=== PATIENT | female | born 1945 | race Asian ===

== ENCOUNTER 2019-09-10 13:54 | Emergency (ER) | payer OTHER ==
--- OUTSIDE RECORDS SUMMARY | 2019-09-10 13:56 | XMS REPORT | Summary of Care ---
:1945 Author Name ORAL CERVANTES M.D. 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 Vaginal discharge (623.5, N89.8) Status: Active Vaginal itching (698.1, N89.8) Status: Active Postmenopausal atrophic vaginitis (627.3, N95.2) Status: Active Encounter for routine gynecological examination with Papanicolaou smear of cervix (V72.31, Z01.419) Status: Active Osteopenia (733.90, M85.80) Status: Active Hip pain, chronic (719.45, M25.559) Status: Active Osteoarthritis of both hips (715.95, M16.0) Status: Active Degenerative joint disease of both hips (715.95, M16.0) Status: Active Encounter for routine gynecological examination (V72.31, Z01.419) Status: Active Visit for screening mammogram (V76.12, Z12.31) Status: Active Medications Name Dates Details Fish Oil OIL Refills: 0 M.A.Active Vitamin C CAPS Refills: 0 M.A.Active Diovan HCT 80-12.5 MG Oral Tablet Refills: 0 M.A.Active Diovan 40 MG Oral Tablet BID Refills: 0 M.A. Start : 18-May-2018 Active Metoprolol Succinate ER 25 MG Oral Tablet Extended Release 24 Hour TAKE 1 TABLET DAILY. Refills: 0 M.A. Start : 18-May-2018 Active 100 Tablet Bottle Diclofenac Sodium 75 MG Oral Tablet Delayed Release TAKE 1 TABLET TWICE DAILY Quantity: 60 Refills: 2 CECILIA RYDER M.D. Start : 20-Oct-2018 Active raNITIdine 150 Max Strength 150 MG TABS TAKE 1 TABLET AT BEDTIME. Refills: 0 GROULS M.D., WILLIE Start : 20-Oct-2018 Active Diclofenac Sodium 1 % Transdermal Gel APPLY SPARINGLY TO AFFECTED AREAS TWICE DAILY Quantity: 1 Refills: 5 BRITNI Tank, CECILIA Start : 22-Oct-2018 Active 100 GM Tube Allergies and Adverse Reactions Name Dates Details Estrogens (Allergy) Status: Active Past Medical History Name Dates Details History of Cervical atypia (622.10, N87.9) Status: Resolved Procedures Procedure Dates Details [place] Breast mammogram bilateral 55297 Date: 27-May-2019 History of Cholecystectomy Completed Immunization Name Dates Details Fluzone High-Dose 0.5 ML Intramuscular Suspension Prefilled Syringe on: 2017 Family History Name Dates Details No pertinent family history (V49.89, Z78.9) Status: Active Social History Name Dates Details - Status: Name Dates Details Never smoker Never smoker Vital Signs Date Test Result Details [id number] BP Systolic 171 mm[Hg] Status: Comments: Location: LUE; Position: Sitting BP Diastolic 90 mm[Hg] Status: Comments: Location: LUE; Position: Sitting Heart Rate 66 /min Status: 61-Kun-[id number]:33 BP Systolic 194 mm[Hg] Status: Comments: Location: LUE; Position: Sitting BP Diastolic 96 mm[Hg] Status: Comments: Location: LUE; Position: Sitting Heart Rate 73 /min Status: Height 64 in Status: Weight 152.2 lb Status: Body Mass Index Calculated 26.13 kg/m2 Status: Body Surface Area Calculated 1.74 m2 Status: Temperature 98.3 f Status: Comments: Method: Oral Results Date Description Value Details [id number] MA Digital Mammo Screening Joseph [id number] Digital Mammo Screening Joseph SEE NOTES Comments: BILATERAL DIGITAL SCREENING MAMMOGRAM WITH CAD: 05/27/2019CLINICAL: /Z12.31 Encounter For Screening Mammogram For Malignant Neoplasm QrKjuqmrq72.31 Encounter For Screening Mammogram For Malignant [place] MA sm OfBreast. Current study was evaluated with a Computer Aided Detection (CAD) system. COMPARISON:Comparison is made to exams dated: 2017 mammogram, 05/18/2017mammogram, 04/15/2016 mammogram, and mammogram - [facility]. TECHNIQUE: Mammographic views were obtained using digital acquisition. Currentstudy was also evaluated with a Computer Aided Detec tion (CAD) system.FINDINGS:The tissue of both breasts is heterogeneously dense, which could obscuredetection of small masses. There are benign calcifications in the left breast. No significant masses, c alcifications, or other findings are seen in eitherbreast. There has been no significant interval change.IMPRESSION: BENIGNRECOMMENDATION:There is no mammographic evidence of malignancy. A 1 yearscreeni ng mammogram is recommended.(05/27/2020) This exam was interpreted [id number] for [facility]. Tomasz Reed M.D. hh/penrad:2018 16:31:25 Features Reporter(s): Myrna beckham, RT(R)(M), [facility] Departmentletter sent : BI-RADS 1/2 Dense Mammogram BI-RADS: 2 Benign--Read by: Tomasz Reed MD PHDDictated Date/time: 06/01/19 16:31Electronically S igned by: Tomasz Reed MD PHD 06/01/1916:31FINAL REPORT Plan of Care Name Dates Details Planned Observations Planned Goals not documented Instructions Name Dates Details Instructions not documented Encounters Appointment; ORAL CERVANTES M.D. On: 18-May-2018 9:35 Encounter Diagnosis: Problem not documented Appointment; DEXA, SCAN On: 18-May-2018 11:00 Encounter Diagnosis: Problem not documented Appointment; CECILIA RYDER M.D. On: 20-Oct-2018 10:15 Encounter Diagnosis: Problem not documented Appointment; ORAL CERVANTES M.D. On: 27-May-2019 11:10 Encounter Diagnosis: Problem not documented
--- NOTE | 2019-09-10 14:54 | RAD REPORT ---
EXAM DESCRIPTION: RAD - Chest Pa And Lat (2 Views) - 09/10/2019 2:47 pm CLINICAL HISTORY: Cough;Fever Chest pain. COMPARISON: Chest Pa And Lat (2 Views) dated 04/11/2019; CHEST SINGLE VIEW dated 01/27/2011; CHEST PA AND LAT 2 VIEW dated 10/02/2008; CHEST PA AND LAT 2 VIEW dated 04/03/1999 FINDINGS: The lungs are clear. No focal infiltrate detected. The heart is mildly enlarged. No displa christopher fractures.
--- NOTE | 2019-09-10 15:52 | EDPHYS ---
Physician Documentation [facility] Name: Marianne Petit Age: 74 yrs Sex: Female : 1945 Arrival Date: 09/10/2019 Time: 13:55 Bed 7 Private MD: Diana Perez R ED Physician Bienvenido Phan HPI: 14:31 This 74 yrs old Female presents to ER via Ambulatory with complaints of Fever, la1 Back Pain, Cough. 14:31 The patient reports fever, that was measured at 100.4 degrees Fahrenheit, with a la1 pattern that is constant, with an emergency department temperature of 99.4 degrees Fahrenheit. Onset: The symptoms/episode began/occurred 4 day(s) ago. Modifying factors: The patient has had contact with sick. Associated signs and symptoms: Pertinent positives: cough. Severity of symptoms: At their worst the symptoms were moderate. The patient has not experienced similar symptoms in the past. pt with family members with flu A, has had cough for a few days, been on tamiflu since Thursday. Fever since Thursday. Cough is persistent, now having upper back pain as well as persistent low grade fever. . Historical: - Allergies: 14:17 No Known Allergies; iw - PMHx: 14:18 Arthritis; MVP; iw - PSHx: 14:18 Cholecystectomy; right hip; cataracts; iw - Immunization history:: Adult Immunizations up to date. - Social history:: Smoking status: Patient denies any tobacco usage or history of. ROS: 14:33 Eyes: Negative for injury, pain, redness, and discharge, ENT: Negative for injury, la1 pain, and discharge, Neck: Negative for injury, pain, and swelling, Cardiovascular: Negative for chest pain, palpitations, and edema. 14:33 Abdomen/GI: Negative for abdominal pain, nausea, vomiting, diarrhea, and constipation. 14:33 MS/Extremity: Negative for injury and deformity, Skin: Negative for injury, rash, and discoloration, Neuro: Negative for headache, weakness, numbness, tingling, and seizure. 14:33 Constitutional: Positive for chills, fever, malaise. 14:33 Respiratory: Positive for cough, with green sputum, Negative for dyspnea on exertion, hemoptysis, orthopnea, shortness of breath, wheezing. 14:33 Back: Positive for upper back pain. Exam: 14:34 Constitutional: This is a well developed, well nourished patient who is awake, alert, la1 and in no acute distress. Head/Face: Normocephalic, atraumatic. Eyes: Pupils equal round and reactive to light, extra-ocular motions intact. Lids and lashes normal. Conjunctiva and sclera are non-icteric and not injected. ENT: Nares patent. No nasal discharge, no septal abnormalities noted. Tympanic membranes are normal and external auditory canals are clear. Oropharynx with no redness, swelling, or masses, exudates, or evidence of obstruction, uvula midline. Mucous membranes moist. Neck: Trachea midline Supple, full range of motion without nuchal rigidity, or vertebral point tenderness. No Meningismus. Chest/axilla: Normal chest wall appearance and motion. Nontender with no deformity. No lesions are appreciated. Cardiovascular: Regular rate and rhythm with a normal S1 and S2. Respiratory: Lungs have equal breath sounds bilaterally, clear to auscultation No increased work of breathing Abdomen/GI: Soft, non-tender, with normal bowel sounds Back: No spinal tenderness. No costovertebral tenderness. Full range of motion. Skin: Warm, dry with normal turgor. Normal color with no rashes, no lesions, and no evidence of cellulitis. MS/ Extremity: Pulses equal, no cyanosis. Vital Signs: 14:14 BP 154 / 75; Pulse 89; Resp 18 S; Temp 99.4(O); Pulse Ox 97% on R/A; Weight 68.04 kg; iw Height 5 ft. 4 in. (162.56 cm); 14:14 Body Mass Index 25.75 (68.04 kg, 162.56 cm) iw MDM: 14:17 Patient medically screened. la1 15:50 Data reviewed: vital signs, nurses notes, radiologic studies, and as a result, I will la1 discharge patient. Data interpreted: Pulse oximetry: on room air is 97 %. Interpretation: normal. Counseling: I had a detailed discussion with the patient and/or guardian regarding: the historical points, exam findings, and any diagnostic results supporting the discharge/admit diagnosis, radiology results, the need for outpatient follow up, a family practitioner, to return to the emergency department if symptoms worsen or persist or if there are any questions or concerns that arise at home. 15:53 ED course: . la1 15:53 ED course: concerned for an early PNE based on presentation and clinical exam. la1 14:29 Order name: Flu; Complete Time: 15:41 la1 14:29 Order name: Chest Pa And Lat (2 Views) XRAY; Complete Time: 14:59 la1 Administered Medications: No medications were administered Disposition: 09/10/19 15:51 Discharged to Home. Impression: Fever, unspecified, Cough. - Condition is Stable. - Discharge Instructions: Fever, Adult, Cough, Adult. - Prescriptions for Doxycycline Hyclate 100 mg Oral Tablet - take 1 tablet by ORAL route every 12 hours for 7 days; 14 tablet. - Medication Reconciliation Form, Thank You Letter, Antibiotic Education form. - Follow up: Private Physician; When: 2 - 3 days; Reason: Recheck today's complaints, Re-evaluation by your physician. Follow up: Emergency Department; When: As needed. - Problem is new. - Symptoms have improved. Addendum: 09/11/2019 18:01 Co-signature as Attending Physician, Bienvenido Phan MD I agree with the assessment and c ferrari plan of care. Signatures: Dispatcher [employer] EDNV Bienvenido Phan MD MD cha Williams, Irene, RN RN iw Juan Bhandari, DECK STEWARD-C DECK STEWARD-Cla1 Jun Brown RN RN jl7 Corrections: (The following items were deleted from the chart) 16:01 15:51 09/10/2019 15:51 Discharged to Home. Impression: Fever, unspecified; Cough. jl7 Condition is Stable. Forms are Medication Reconciliation Form, Thank You Letter, Antibiotic Education, Prescription Opioid Use. Follow up: Private Physician; When: 2 - 3 days; Reason: Recheck today's complaints, Re-evaluation by your physician. Follow up: Emergency Department; When: As needed. Problem is new. Symptoms have improved. la1
--- NOTE | 2019-09-10 15:52 | ER ---
Nurse's Notes [facility] Name: Marianne Petit Age: 74 yrs Sex: Female : 1945 Arrival Date: 09/10/2019 Time: 13:55 Bed 7 Private MD: Diana Perez R Diagnosis: Fever, unspecified;Cough Presentation: 14:14 Chief complaint: Spouse and/or significant other states: pt was started on tamiflu on iw Thursday , was prescribed tamiflu because her son-in-law tested positive for Flu A, pt still has low grade fever and cough has gotten worse and she now has back pain. Coronavirus screen: The patient has NOT traveled to [place] in the past 14 days. Proceed with normal triage procedures. Ebola Screen: Patient negative for fever greater than or equal to 101.5 degrees Fahrenheit, and additional compatible Ebola Virus Disease symptoms Patient denies exposure to infectious person. Patient denies travel to an Ebola-affected area in the 21 days before illness onset. No symptoms or risks identified at this time. Initial Sepsis Screen: Does the patient meet any 2 criteria? No. Patient's initial sepsis screen is negative. Does the patient have a suspected source of infection? No. Patient's initial sepsis screen is negative. Risk Assessment: Do you want to hurt yourself or someone else? Patient reports no desire to harm self or others. 14:14 Method Of Arrival: Ambulatory iw 14:14 Acuity: SANDY 3 iw Historical: - Allergies: 14:17 No Known Allergies; iw - PMHx: 14:18 Arthritis; MVP; iw - PSHx: 14:18 Cholecystectomy; right hip; cataracts; iw - Immunization history:: Adult Immunizations up to date. - Social history:: Smoking status: Patient denies any tobacco usage or history of. Screenin:38 Abuse screen: Denies threats or abuse. Denies injuries from another. Nutritional jl7 screening: No deficits noted. Tuberculosis screening: No symptoms or risk factors identified. Fall Risk None identified. Assessment: 14:38 General: Appears in no apparent distress. uncomfortable, Behavior is calm, cooperative, jl7 appropriate for age. Pain: Complains of pain in diaphragm Quality of pain is described as "Sore from coughing". Neuro: Level of Consciousness is awake, alert, obeys commands, Oriented to person, place, time, situation. Cardiovascular: Heart tones S1 S2 present Patient's skin is warm and dry. Respiratory: Airway is patent Respiratory effort is even, unlabored, Respiratory pattern is regular, symmetrical, Breath sounds are clear bilaterally. Derm: Skin is pink, warm \\T\\ dry. Vital Signs: 14:14 BP 154 / 75; Pulse 89; Resp 18 S; Temp 99.4(O); Pulse Ox 97% on R/A; Weight 68.04 kg; iw Height 5 ft. 4 in. (162.56 cm); 14:14 Body Mass Index 25.75 (68.04 kg, 162.56 cm) ED Course: 13:55 Patient arrived in ED. am2 13:56 Diana Perez MD is Private Physician. am2 14:16 Triage completed. iw 14:17 Juan [facility]C [facility]. la1 14:17 Bienvenido Phan MD is Attending Physician. la1 14:17 Arm band placed on. iw 14:26 Jun Brown RN is Primary Nurse. jl7 14:38 Patient has correct armband on for positive identification. Bed in low position. Call jl7 light in reach. Side rails up X 1. Pulse ox on. NIBP on. 14:38 Flu and/or RSV swab sent to lab. jl7 14:49 Chest Pa And Lat (2 Views) XRAY In Process Unspecified. EDMS 16:01 No provider procedures requiring assistance completed. Patient did not have IV access jl7 during this emergency room visit. Administered Medications: No medications were administered Outcome: 15:51 Discharge ordered by . la1 16:01 Discharged to home ambulatory. jl7 16:01 Condition: stable 16:01 Discharge instructions given to patient, family, Instructed on discharge instructions, follow up and referral plans. medication usage, Demonstrated understanding of instructions, follow-up care, medications, Prescriptions given X 1. 16:01 Patient left the ED. jl7 Signatures: Dispatcher [employer] EDMS Pati Peter RN RN Juan Bhandari FNP-C COUGAR HUNTER-Cla1 Jun Brown RN RN jl7 Haley Chin am2 Corrections: (The following items were deleted from the chart) 14:22 14:14 BP 154 / 75; Pulse 89bpm; Resp 18bpm; Spontaneous; Pulse Ox 97% RA; 68.04 kg; iw Height 5 ft. 4 in.; BMI: 25.7; iw
[2019-09-10 16:07] VITALS: BP 154/75; TEMP 99.4; O2SAT 97
== END 2019-09-10 16:01 | disposition home or self-care (01) ==
LOC: ER 13:54
DX: R05 Cough (principal)
CPT/HCPCS: 71046; 87804; 99284